=== PATIENT | male | born 1990 | race African-American/Black ===

== ENCOUNTER → 2019-01-06 | Outpatient (CLI) | payer MEDICARE, MEDICAID ==
--- NOTE | 2019-01-06 18:43 | RADIOLOGY REPORT (SQ) ---
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 Selected additional c olor/power Doppler images recorded. All images stored to PACS. LIMITATIONS: None. FINDINGS: RIGHT LOBE: Normal size, 4.3 cm. Homogeneous echotexture. No cystic or solid masses. LEFT LOBE: Normal size, 3.9 cm. Homogeneous echotexture. No cystic or solid masses. ISTHMUS: Normal size, 6 mm. Homogeneous echotexture. No cystic or solid masses. OTHER: No other significant finding. IMPRESSION: NORMAL THYROID ULTRASOUND. TECHNICAL DOCUMENTATION: JOB ID: [id number] [employer]- All Rights Reserved Reading location - IP/workstation name: [email or web address]
== END ==
LOC: RAD 18:15
PROVIDERS: ATTEND Family Medicine
DX: E01.0 Iodine-deficiency related diffuse (endemic) goiter (principal)
CPT/HCPCS: 76536